=== PATIENT | female | born 1970 | race African-American/Black ===

== ENCOUNTER 2016-08-14 23:55 | Emergency (ER) | payer BC ==
[~2016-08-14 23:55] MED LIST: METOPROLOL SUCC50 MG PO; PHENERGAN25 M1 PO; PREDNISONE PO; TAMIFLU75 M1 PO; ZOLOFT50 MG PO
== END 2016-08-15 00:50 | disposition home or self-care (01) ==
LOC: CED 23:55
DX: J32.0 Chronic maxillary sinusitis (principal); Z88.0 Allergy status to penicillin
CPT/HCPCS: 99282